=== PATIENT | male | born 1945 | race Two or more races ===

== ENCOUNTER 2024-02-25 10:57 | Outpatient (CLI) | payer MEDICARE, MEDICAID ==
[2024-02-25] MEDS ORDERED: SIMETHICONE/SOD BICARB/CIT AC 1 EACH GRAN.EF.PK PO ONE (11:09)
[2024-02-25] MEDS ORDERED: BARIUM SULFATE 98% 135 ML SUSP.RECON PO ONE (11:09)
== END 2024-02-25 23:59 | disposition home or self-care (01) ==
LOC: RAD 10:57
PROVIDERS: ATTEND Internal Medicine
DX: C16.4 Malignant neoplasm of pylorus (principal)
CPT/HCPCS: 74246-TC; 74250-TC

== ENCOUNTER 2025-02-10 13:32 | Emergency (ER) | payer MEDICARE, OTHER ==
[~2025-02-10] VITALS: Ht 172.7 cm; Wt 70.8 kg
[2025-02-10 13:40] VITALS: TEMP 98.3
[2025-02-10] MEDS ORDERED: LIDOCAINE HCL/MPF 1% 30 ML VIAL IJ ONE (14:14)
[2025-02-10] MEDS: LIDOCAINE 1% INJ 50 ML MDV IJ ONE (14:30)
[2025-02-10] MEDS ORDERED: IBUP-1955 PO ×2 (14:58→15:18)
[2025-02-10] MEDS ORDERED: CEPH-570 PO ×2 (14:58→15:18)
[2025-02-10] MEDS: BACI/NEOM/POLY B OINT PKT 1 UDPKT PACKET TP ONE (15:15)
[2025-02-10] MEDS ORDERED: TDAP [DIPH/PERTUSSIS/TET] 0.5 ML VIAL IM ONE (15:31)
[2025-02-10] MEDS: TDAP [DIPH/PERTUSSIS/TET] 0.5 ML VIAL IM ONE (15:32)
[2025-02-10 16:12] VITALS: BP 130/60; O2SAT 98
== END 2025-02-10 15:38 | disposition home or self-care (01) ==
LOC: ER 13:35
DX: S61.212A Laceration without foreign body of right middle finger without damage to nail, initial encounter (principal); I25.10 Atherosclerotic heart disease of native coronary artery without angina pectoris; I10 Essential (primary) hypertension; E78.5 Hyperlipidemia, unspecified; Z95.1 Presence of aortocoronary bypass graft; W23.0XXA Caught, crushed, jammed, or pinched between moving objects, initial encounter; Y93.89 Activity, other specified; Y92.89 Other specified places as the place of occurrence of the external cause; Y99.8 Other external cause status
CPT/HCPCS: 12001; 73140; 90471; 90715; 99283; J3490

== ENCOUNTER 2025-02-18 17:24 | Emergency (ER) | payer MEDICARE, OTHER ==
[~2025-02-18] VITALS: Ht 172.7 cm; Wt 72.6 kg
[~2025-02-18 17:24] MED LIST: CEPH-570 PO; IBUP-1955 PO
[2025-02-18 17:30] VITALS: BP 135/68; TEMP 97.9; O2SAT 97
== END 2025-02-18 19:06 | disposition home or self-care (01) ==
LOC: ER 18:45
DX: S61.212D Laceration without foreign body of right middle finger without damage to nail, subsequent encounter (principal); Z48.02 Encounter for removal of sutures; Z79.899 Other long term (current) drug therapy; X58.XXXD Exposure to other specified factors, subsequent encounter